=== PATIENT | male | born 1955 | race Caucasian/White ===

== ENCOUNTER → 2023-10-12 13:03 | Outpatient (CLI) | payer OTHER, SELFPAY ==
--- NOTE | 2023-10-12 | DI.ECHO.S_ITS ---
[facility]---------+ [facility] +---------+ : : [address] : : : : [id number] : : : : Phone: [phone] +---------+ Echocardiogram Report + + :Name: ROMEO ARCEO Study Date: 10/12/2023 Height: 72 in : :[facility] ReadingLocation: Weight: 195 lb : : Gender: Male BSA: 2.1 m2 : :: 1955 Age: 68 yrs BP: 130/87 mmHg: :Reason For Study: ATRIAL FIBRILLATION : :Ordering Physician: WEN, : :KULDEEP Gandara Performed By: Ariana Hare : :Referring: KULDEEP CARVER : + + Interpretation Summary The left ventricle is normal in size and wall thickness. The left ventricular ejection fraction is normal. The ejection fraction is estimated to be 60-65%. There has been no significant change in LVEF since the previous exam. The right ventricle is normal in size and function. There is mild mitral regurgitation. The IVC is dilated (diameter is greater than 2.1 cm) yet it collapses greater than 50% with a sniff. This suggests a right atrial pressure of 8 mm Hg. The ascending aorta is at the upper limits of normal in size. 3.9 cm in diameter. Previously 4 cm. Procedure: A two-dimensional transthoracic echocardiogram with color flow and Doppler was performed. The study quality was technically adequate. Comparison is made with the echocardiogram of 05/20/2020. The patient was in sinus rhythm with heart rates between 56-71 bpm during the exam. Left Ventricle: The left ventricle is normal in size and wall thickness. There is no thrombus. The ejection fraction is estimated to be 60-65%. The left ventricular ejection fraction is normal. There has been no significant change since the previous exam. There are no focal wall motion abnormalities. MV E/A: 1.9 Med Peak E' Justus: 7.4 cm/sec E/E' med: 12.0. Right Ventricle: The right ventricle is normal in size and function. Atria: The left atrium is mildly dilated. The left atrium has mildly increased in size since the prior echo exam. The right atrium is borderline dilated. There is no Doppler evidence for an interatrial shunt. Mitral Valve: There is mild mitral annular calcification. There is mild mitral regurgitation. Aortic Valve: The aortic valve is trileaflet. The aortic valve opens well. The aortic valve is mildly calcified. There is discrete nodular thickening of the right coronary cusp. There is no aortic valve stenosis. No aortic regurgitation is present. Tricuspid Valve: The tricuspid valve is normal in structure and function. There is trace tricuspid regurgitation. Pulmonary artery pressures cannot be estimated because of the lack of a measurable TR jet velocity. Pulmonic Valve: The pulmonic valve is not well visualized. There is no pulmonic valvular regurgitation. Great Vessels: The aortic root is normal size. The ascending aorta is at the upper limits of normal in size. The IVC is dilated (diameter is greater than 2.1 cm) yet it collapses greater than 50% with a sniff. This suggests a right atrial pressure of 8 mm Hg. Pericardium/ Pleura There is no pericardial effusion. There is no pleural effusion. MMode/2D Measurements & Calculations LVIDd: 4.8 cm LVOT diam: 2.4 cm LVIDs: 3.2 cm Ao root diam: 3.4 cm FS: 32.9 % asc Aorta Diam: 3.9 cm IVSd: 0.71 cm Ao Arch Diam (Prox Trans): 3.2 cm LVPWd: 0.76 cm LV gibbons. diameter/BSA (cm/m^2): 2.3 LV sys. diameter/BSA (cm/m^2): 1.5 LA A2 area: 24.4 cm2 RA long axis: 4.9 cm LA A4 area: 22.9 cm2 RA area: 20.4 cm2 LA length (vol): 5.9 cm RA vol: 72.1 ml LA vol: 80.9 ml RA : 34.2 ml/m2 LA vol index: 38.4 ml/m2 IVC diam: 2.1 cm RVD1 (basal): 3.8 cm RVD2 (mid): 2.5 cm TAPSE: 1.7 cm Doppler Measurements & Calculations Ao V2 max: 132.8 cm/sec LVOT Max Justus: 102.9 cm/sec Ao V2 mean: 94.1 cm/sec LV V1 max P.2 mmHg Ao max P.1 mmHg LV V1 VTI: 23.4 cm Ao mean P.9 mmHg MENDOZA(I,D): 3.7 cm2 Ao V2 VTI: 27.9 cm MENDOZA(V,D): 3.4 cm2 sev ratio: 0.84 MENDOZA indexed to BSA (cm^2/m^2): 1.8 MV E max justus: 88.3 cm/sec PA V2 max: 85.3 cm/sec MV A max justus: 46.8 cm/sec PA V2 mean: 63.2 cm/sec MV E/A: 1.9 PA mean P.7 mmHg Med Peak E' Justus: 7.4 cm/sec PA pr(Accel): 37.9 mmHg E/E' med: 12.0 Lat Peak E' Justus: 10.5 cm/sec E/E' lat: 8.4 E/e' average: 10.2 MV dec time: 0.19 sec SV(LVOT): 103.1 ml Reading Physician:03:49 PM
== END ==
PROVIDERS: Referring Provider Nurse Practitioner; Visit Provider Nurse Practitioner
DX: I48.0 Paroxysmal atrial fibrillation (principal); I34.81 Nonrheumatic mitral (valve) annulus calcification; I34.0 Nonrheumatic mitral (valve) insufficiency
CPT/HCPCS: 93306